=== PATIENT | female | born 1960 | race Caucasian/White ===

== ENCOUNTER 2022-06-04 02:50 | Emergency (ER) | payer MEDICAID, OTHER ==
[~2022-06-04] VITALS: Ht 149.9 cm; Wt 65.9 kg
[2022-06-04] MEDS ORDERED: LORAZEPAM 1MG TABLET PO ONE (04:30)
[2022-06-04 04:34] LABS: BASOPHILS % 0.2 % (0.0-2.0); EOSINOPHILS % 0.4 % (0.0-5.0); HEMATOCRIT. 41.7 % (36.0-48.0); HEMOGLOBIN. 14.3 g/dL (12.0-16.0); MEAN CORPUSCULAR HEMOGLOBIN 29.6 pg (28.0-32.0); MEAN PLATELET VOLUME 7.9 fl (7.4-10.4); MONOCYTES % 5.4 % (2.0-8.0); PLATELET 273 x1000/uL (130-400); RED BLOOD CELL COUNT 4.84 mill/uL (4.2-5.4); RED CELL DISTRIBUTION WIDTH 12.9 % (11.6-14.6)
[2022-06-04 04:38] LABS: CHLORIDE 97 mEq/L (98-107)
[2022-06-04 05:59] VITALS: BP 148/78
== END 2022-06-04 06:18 | disposition home or self-care (01) ==
LOC: ER 02:50
DX: T40.711A Poisoning by cannabis, accidental (unintentional), initial encounter (principal); I49.9 Cardiac arrhythmia, unspecified; Y92.9 Unspecified place or not applicable
CPT/HCPCS: 36415; 71045; 80053; 84484; 85025; 85379; 93005; 99285

== ENCOUNTER 2022-06-08 18:40 | Emergency (ER) | payer MEDICAID ==
[~2022-06-08] VITALS: Ht 165.1 cm; Wt 51.0 kg
[2022-06-08 19:03] VITALS: BP 175/85
[2022-06-08] MEDS ORDERED: LORAZEPAM 1MG TABLET PO ONE (22:45)
== END 2022-06-09 00:02 | disposition home or self-care (01) ==
LOC: ER 18:40
DX: F41.9 Anxiety disorder, unspecified (principal); R07.89 Other chest pain; I10 Essential (primary) hypertension; F32.A Depression, unspecified; G47.00 Insomnia, unspecified; R25.1 Tremor, unspecified; T43.015A Adverse effect of tricyclic antidepressants, initial encounter; Y92.018 Other place in single-family (private) house as the place of occurrence of the external cause
CPT/HCPCS: 71045; 93005; 99283